=== PATIENT | female | born 1960 | race Two or more races ===

== ENCOUNTER → 2017-04-12 | Outpatient (CLI) | payer MEDICARE, BC ==
[2017-04-12 21:38] LABS: Appearance,CSF Clear
[2017-04-16 11:37] LABS: Lyme Specimen Source Not Provided
[2017-04-17 14:19] LABS: Immunoglobulin G 876 mg/dL (700 - 1600)
== END | disposition home or self-care (01) ==
LOC: LABWHC1 12:24
PROVIDERS: ATTEND Psychiatry & Neurology Pain Medicine
DX: M04.1 Periodic fever syndromes (principal); R14.0 Abdominal distension (gaseous); R42 Dizziness and giddiness; R41.3 Other amnesia; H53.8 Other visual disturbances; R41.0 Disorientation, unspecified
CPT/HCPCS: 36415; 82040; 82042; 82784; 83873; 83916; 87476; 89050